=== PATIENT | female | born 1950 | race Caucasian/White ===

== ENCOUNTER → 2017-11-27 | Outpatient (CLI) | payer MEDICARE, OTHER ==
[~2017-11-27] MED LIST: ALB17R INH; ALBU8.5H IH; ALBU8.5H INH; AMOX875T60 PO; ASCO-182 PO; ASPI-1471 PO; AZEL205. NS; AZI250 PO; AZIT-1 PO; BETA6VIA IJ; BUPI5VIA IJ; CHOL10005 PO; CPAP; DULO60CA51 PO; ESOM40CA42 PO; EUCA30SO NS; FLUT1DIS27 IH; FLUT1DIS28 IH; FLUT9.9S; GLUC100026 PO; GUAI1200 PO; GUAI120L3 PO; GUAI480S48 PO; HCTZ25 PO; IBU800 PO; IPRN ENA; LACT1CAP6 PO; LORA-630 PO; LORA-802 PO; LORA10CA3 PO; MAGN27TA6 PO; MON10 PO; MONT10TA4 PO; MULT-820 PO; MUPI15CR2 TP; OMEG500C5 PO; OMEP-125 PO; POTA99TA15 PO; PRED20TA6 PO; SODI3VIA11 IH; TIO18R; VITA-175 PO; [UNRECOGNIZED DRUG - CODE] INH; [UNRECOGNIZED DRUG - CODE] PO
[2017-11-27 14:46] LABS: PLATELET COUNT, AUTOMATED 215 K/uL (150-450)
== END ==
LOC: LAB 14:17
PROVIDERS: ATTEND Nurse Practitioner Family
DX: R06.02 Shortness of breath (principal); D75.1 Secondary polycythemia; R63.5 Abnormal weight gain; R73.01 Impaired fasting glucose; R71.8 Other abnormality of red blood cells
CPT/HCPCS: 36415; 82040; 82247; 82310; 82374; 82435; 82565; 82728; 82947; 83036; 83540; 83550; 83880; 84075; 84132; 84155; 84295; 84443; 84450; 84460; 84520; 85025

== ENCOUNTER → 2018-04-19 | Outpatient (REF) | payer MEDICARE, OTHER | LOC: ZZSENDIN 18:45 | PROVIDERS: ATTEND Physician Assistant | DX: E87.6 Hypokalemia (principal) | CPT/HCPCS: 84132 ==